=== PATIENT | female | born 1965 | race Caucasian/White ===

== ENCOUNTER → 2020-02-11 | Outpatient (CLI) | payer OTHER ==
--- NOTE | 2020-02-11 11:55 | MR ---
EXAMINATION TYPE: MR knee LT wo con DATE OF EXAM: 02/11/2020 COMPARISON: X-ray 01/16/2020 HISTORY: Left knee pain TECHNIQUE: Multiplanar, multisequence imaging of the left knee is performed without IV contrast. FINDINGS: MEDIAL MENISCUS: Anterior and posterior horns are intact without tear. LATERAL MENISCUS: Anterior and posterior horns are intact without tear. CRUCIATE LIGAMENTS: The anterior and posterior cruciate ligaments are intact and unremarkable. COLLATERAL LIGAMENTS: The medial collateral ligament and lateral collateral ligament complex are inta ct and unremarkable. EXTENSOR MECHANISM: Visualized quadriceps and patellar tendons are intact. EFFUSION: No significant suprapatellar joint effusion. POPLITEAL CYST: No popliteal/de león cyst. TRICOMPARTMENT SPACES: There is fibrillation and grade III chondromalacia involving the articular demarco face of the medial femur joint spaces preserved. No erosive changes. BONE MARROW SIGNAL: Small focal 1 cm area of nonspecific marrow edema involving the posterior lateral femoral condyle may represent contusion. No fracture line. IMPRESSION: 1. 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 2. 1 cm area of localized marrow edema posterior lateral femoral condyle may represent small bone con tusion. Overlying cartilage is intact and there is no evidence of fracture line. Differential diagnos is also include a small area of osteochondritis. 3. No evidence of ligamentous or meniscal tear.
== END | disposition home or self-care (01) ==
LOC: RADMRIMAIN 10:53
PROVIDERS: ATTEND Orthopaedic Surgery
DX: M94.262 Chondromalacia, left knee (principal)